=== PATIENT | male | born 1975 | race African-American/Black ===

== ENCOUNTER 2018-11-05 07:15 | Day surgery (SDC) | payer OTHER ==
[2018-11-05] MEDS ORDERED: BUPIVACAINE 0.5%/EPI (SDV) 30 ML INJ (07:46)
[2018-11-05 07:55] LABS: ADD MAN DIFF? NO
[2018-11-05 07:59] LABS: WHITE BLOOD COUNT 4.9 10^3/ul (4.8-10.8)
[2018-11-05 07:59] LABS: BASOPHILS % 0.8 % (0.0-2.0); EOSINOPHILS # 0.3 10^3/ul (0.0-0.5); EOSINOPHILS % 5.8 % (0.0-7.0); HEMATOCRIT 44.2 % (42.0-52.0); HEMOGLOBIN 14.7 g/dl (14.0-18.0); LYMPHOCYTES # 1.1 10^3/ul (0.8-2.9); LYMPHOCYTES % 23.3 % (15.0-51.0); MEAN CORPUSCULAR HEMOGLOBIN 29.3 pg (29.0-33.0); MEAN CORPUSCULAR HGB CONC 33.3 g/dl (32.0-37.0); MEAN PLATELET VOLUME 9.7 fl (7.4-10.4); MONOCYTE # 0.5 10^3/ul (0.3-0.9); MONOCYTES % 9.3 % (0.0-11.0); NEUTROPHILS % 60.6 % (39.0-77.0); PLATELET COUNT 221 10^3/UL (140-415); RED BLOOD COUNT 5.02 10^6/ul (4.70-6.10); RED CELL DISTRIBUTION WIDTH 13.3 % (11.5-14.5)
[2018-11-05 08:16] LABS: INR 0.97
[2018-11-05 08:17] LABS: PARTIAL THROMBOPLASTIN TIME 34.6 Sec (23.0-35.0)
[2018-11-05 08:19] LABS: ANION GAP 14 (5-13); BLOOD UREA NITROGEN 15 mg/dl (7-20); CALCIUM 9.7 mg/dl (8.4-10.2); CARBON DIOXIDE 26 mmol/L (21-31); CHLORIDE 101 mmol/L (97-110); CREATININE 1.19 mg/dl (0.61-1.24); Estimated GFR > 60 mL/min (>60); GLUCOSE 81 mg/dl (70-220); POTASSIUM 4.2 mmol/L (3.5-5.1); SODIUM 141 mmol/L (135-144)
[2018-11-05] MEDS ORDERED: METOCLOPRAMIDE 10 MG INJ (08:32)
[2018-11-05] MEDS ORDERED: SUCCINYLCHOLINE CHLORIDE 100 MG/5 ML SYG IV (08:32)
[2018-11-05] MEDS ORDERED: GLYCOPYRROLATE 0.4 MG INJ (08:32)
[2018-11-05] MEDS ORDERED: ROCURONIUM 50 MG INJ (08:32)
[2018-11-05] MEDS ORDERED: ONDANSETRON 4 MG INJ (08:32)
[2018-11-05] MEDS ORDERED: FENTAnyl 50 MCG/ML VIAL (08:32)
[2018-11-05] MEDS ORDERED: PROPOFOL 20 ML (08:32)
[2018-11-05] MEDS ORDERED: MIDAZOLAM 1 MG/ML 2 ML INJ (08:32)
[2018-11-05] MEDS ORDERED: NEOSTIGMINE 3 MG/3 ML SYRINGE (08:32)
[2018-11-05] MEDS ORDERED: CEFAZOLIN 1 GM INJ (08:52)
[2018-11-05] MEDS ORDERED: NEOMYC/POLYMYX/BACIT 30 GM OINT (09:12)
[2018-11-05] MEDS: BUPIVACAINE 0.5%/EPI (SDV) 30 ML INJ INJ (09:28)
[2018-11-05] MEDS ORDERED: KETOROLAC 15 MG INJ IV (09:30)
[2018-11-05] MEDS ORDERED: METOCLOPRAMIDE 10 MG INJ IV (09:30)
[2018-11-05] MEDS ORDERED: ONDANSETRON 4 MG INJ IV ×2 (09:30→10:00)
[2018-11-05] MEDS ORDERED: FENTAnyl 50 MCG/ML VIAL IV (09:30)
[2018-11-05] MEDS ORDERED: HYDROmorphONE 1 MG/5 ML IV SYRINGE IV (09:30)
[2018-11-05] MEDS ORDERED: LABETALOL HCL 20MG INJ IV (09:30)
[2018-11-05] MEDS ORDERED: morphine (1 MG/ML) 10ML SYRINGE IV (09:30)
[2018-11-05] MEDS: NEOMYC/POLYMYX/BACIT 30 GM OINT TOP (09:32)
[2018-11-05] MEDS ORDERED: IBUPROFEN 600 MG TAB PO (10:00)
== END 2018-11-05 12:09 | disposition home or self-care (01) ==
LOC: SDS 07:15
DX: L72.0 Epidermal cyst (principal)
CPT/HCPCS: 11426; 80048; 85025; 85610; 85730; 88307